=== PATIENT | female | born 1985 | race Caucasian/White ===

== ENCOUNTER → 2023-11-10 13:51 | Outpatient (REF) | payer BC, SELFPAY | LOC: PNTC 13:51 | PROVIDERS: ATTENDING PHYSICIAN Obstetrics & Gynecology | DX: Z36.0 Encounter for antenatal screening for chromosomal anomalies (principal); Z36.82 Encounter for antenatal screening for nuchal translucency; O09.899 Supervision of other high risk pregnancies, unspecified trimester; O34.219 Maternal care for unspecified type scar from previous cesarean delivery; O09.529 Supervision of elderly multigravida, unspecified trimester | CPT/HCPCS: 76801; 76813 ==

== ENCOUNTER → 2023-12-02 16:24 | Outpatient (REF) | payer BC, SELFPAY | LOC: PNTC 16:24 | PROVIDERS: ATTENDING PHYSICIAN Obstetrics & Gynecology | DX: O09.529 Supervision of elderly multigravida, unspecified trimester (principal); O34.219 Maternal care for unspecified type scar from previous cesarean delivery; O99.210 Obesity complicating pregnancy, unspecified trimester | CPT/HCPCS: 76805; 76817 ==

== ENCOUNTER → 2023-12-16 16:44 | Outpatient (REF) | payer BC, SELFPAY | LOC: PNTC 16:44 | PROVIDERS: ATTENDING PHYSICIAN Obstetrics & Gynecology | DX: O60.10X0 Preterm labor with preterm delivery, unspecified trimester, not applicable or unspecified (principal) | CPT/HCPCS: 76815; 76817 ==

== ENCOUNTER → 2023-12-31 14:56 | Outpatient (REF) | payer BC, SELFPAY | LOC: PNTC 14:56 | PROVIDERS: ATTENDING PHYSICIAN Obstetrics & Gynecology | DX: O09.529 Supervision of elderly multigravida, unspecified trimester (principal); O99.210 Obesity complicating pregnancy, unspecified trimester; O34.219 Maternal care for unspecified type scar from previous cesarean delivery | CPT/HCPCS: 76811; 76817 ==

== ENCOUNTER → 2024-01-12 16:43 | Outpatient (REF) | payer BC, SELFPAY | LOC: PNTC 16:43 | PROVIDERS: ATTENDING PHYSICIAN Obstetrics & Gynecology | DX: O60.10X0 Preterm labor with preterm delivery, unspecified trimester, not applicable or unspecified (principal) | CPT/HCPCS: 76815; 76817 ==

== ENCOUNTER → 2024-01-29 15:45 | Outpatient (REF) | payer BC, SELFPAY | LOC: PNTC 15:45 | PROVIDERS: ATTENDING PHYSICIAN Obstetrics & Gynecology | DX: O09.219 Supervision of pregnancy with history of pre-term labor, unspecified trimester (principal) | CPT/HCPCS: 76816; 76817 ==

== ENCOUNTER 2024-03-23 17:41 | Observation (INO) | payer BC, SELFPAY ==
[2024-03-23] MEDS: TRANDATE 200 MG PO (18:22)
[2024-03-23 18:38] VITALS: BP 154/92; BMI 42.1
[2024-03-23 18:56] LABS: Hematocrit 34.2 % (37.0-47.0); Hemoglobin 11.4 g/dL (12.0-16.0); Mean Corp Hgb Conc. 33.3 g/dL (33.0-37.0); Mean Corpuscular Hgb 26.5 pg (27.0-31.0); Mean Corpuscular Volume 79.5 fL (81.0-99.0); Mean Platelet Volume 11.7 fL (7.4-10.4); Platelet Count 135 10^3/uL (130-400); Red Cell Dist. Width 13.5 % (11.5-14.5); White Blood Cell Count 9.8 10^3/uL (4.8-10.8)
[2024-03-23 19:00] LABS: Urine Albumin Negative (Neg - Trace); Urine Bilirubin Negative (Negative); Urine Character Clear (Clear); Urine Color Yellow; Urine Glucose Negative (Negative); Urine Ketone Trace (Negative); Urine Leukocyte Negative (Negative); Urine Nitrite Negative (Negative); Urine Occult Blood Negative (Negative); Urine Urobilinogen Negative (Neg - 1+)
[2024-03-23 19:04] LABS: ALT (SGPT) 12 U/L (0-35); AST (SGOT) 20 U/L (14-36); Albumin 3.6 g/dl (3.5-5.0); Alkaline Phosphatase 80 U/L (38-126); Blood Urea Nitrogen 10 mg/dl (7-17); Calcium 8.8 mg/dl (8.4-10.2); Carbon Dioxide 22 mmol/L (22-30); Chloride 104 mmol/L (98-107); Estimated Creatinine Clearance > 125 ml/min; Glucose 78 mg/dl (70-99); Potassium 3.9 mmol/L (3.5-5.1); Sodium 135 mmol/L (135-145); Total Bilirubin 0.3 mg/dl (0.2-1.3); Total Protein 6.4 g/dl (6.3-8.2); eGFR > 60.00
[2024-03-23 19:14] LABS: Protein/creatinine Ratio 0.5; Urine Protein 14 mg/dl
== END 2024-03-23 23:31 | disposition home or self-care (01) ==
LOC: LDRP 17:41
PROVIDERS: ADMITTING PHYSICIAN Obstetrics & Gynecology
DX: O10.013 Pre-existing essential hypertension complicating pregnancy, third trimester (principal); Z3A.32 32 weeks gestation of pregnancy; O99.113 Other diseases of the blood and blood-forming organs and certain disorders involving the immune mechanism complicating pregnancy, third trimester; D69.6 Thrombocytopenia, unspecified; O99.213 Obesity complicating pregnancy, third trimester; E66.01 Morbid (severe) obesity due to excess calories; G43.909 Migraine, unspecified, not intractable, without status migrainosus; O98.313 Other infections with a predominantly sexual mode of transmission complicating pregnancy, third trimester; A60.00 Herpesviral infection of urogenital system, unspecified; O09.523 Supervision of elderly multigravida, third trimester; Z91.148 Patient's other noncompliance with medication regimen for other reason
CPT/HCPCS: 59025; 76816; 80053; 81003; 82570; 84156; 85027; G0378

== ENCOUNTER 2024-03-29 10:08 | Observation (INO) | payer BC, SELFPAY ==
[2024-03-29 10:40] VITALS: BP 144/87; BMI 43.2
[2024-03-29 11:47] LABS: Urine Albumin Trace (Neg - Trace); Urine Bilirubin Negative (Negative); Urine Character Clear (Clear); Urine Color Yellow; Urine Glucose Negative (Negative); Urine Ketone Negative (Negative); Urine Leukocyte Trace (Negative); Urine Nitrite Negative (Negative); Urine Occult Blood Negative (Negative); Urine Specific Gravity 1.025 (<1.030); Urine Urobilinogen Negative (Neg - 1+)
[2024-03-29 11:48] LABS: % Basophils 0.3 % (0-2); % Eosinophils 2.9 % (0-6); % Immature Granulocytes 0.7 % (0-0.5); % Lymphocytes 18.1 % (20.5-51.1); % Monocytes 6.1 % (1.7-9.3); % Neutrophils 71.9 % (42.2-75.2); Absolute Eosinophils 0.2 10^3/uL (0-0.7); Absolute Immature Granulocytes 0.1 10^3/uL (0-0.05); Absolute Lymphocytes 1.4 10^3/uL (1.2-3.4); Absolute Monocytes 0.5 10^3/uL (0.1-0.6); Absolute Neutrophils 5.5 10^3/uL (1.4-6.5); Hematocrit 31.4 % (37.0-47.0); Hemoglobin 10.8 g/dL (12.0-16.0); Mean Corp Hgb Conc. 34.4 g/dL (33.0-37.0); Mean Corpuscular Hgb 27.6 pg (27.0-31.0); Mean Corpuscular Volume 80.1 fL (81.0-99.0); Mean Platelet Volume 12.4 fL (7.4-10.4); Nucleated Red Blood Cells % 0 %; Platelet Count 128 10^3/uL (130-400); Red Blood Cell Count 3.92 10^6/uL (4.20-5.40); Red Cell Dist. Width 13.8 % (11.5-14.5); White Blood Cell Count 7.6 10^3/uL (4.8-10.8)
[2024-03-29 12:09] LABS: ALT (SGPT) 16 U/L (0-35); AST (SGOT) 21 U/L (14-36); Albumin 3.3 g/dl (3.5-5.0); Alkaline Phosphatase 85 U/L (38-126); Blood Urea Nitrogen 9 mg/dl (7-17); Calcium 9.3 mg/dl (8.4-10.2); Carbon Dioxide 23 mmol/L (22-30); Chloride 105 mmol/L (98-107); Estimated Creatinine Clearance > 125 ml/min; Glucose 77 mg/dl (70-99); Potassium 4.4 mmol/L (3.5-5.1); Sodium 136 mmol/L (135-145); Total Bilirubin 0.3 mg/dl (0.2-1.3); Total Protein 5.9 g/dl (6.3-8.2); Uric Acid 7.1 mg/dl (2.5-6.2); eGFR > 60.00
[2024-03-29 12:35] LABS: Protein/creatinine Ratio 0.2; Urine Protein 41 mg/dl
[2024-03-29 13:17] LABS: Urine Mucus Many; Urine Squamous Cell >30 /LPF (Few)
[2024-03-29 13:22] LABS: Urine Amorphous Seen; Urine Calcium Oxalate Crystals Seen; Urine Red Blood Cell 0-2 /HPF (0-2); Urine White Cell 0-2 /HPF (0-5)
[2024-03-29 13:23] LABS: Urine Uric Acid Crystals Present
== END 2024-03-29 15:22 | disposition home or self-care (01) ==
LOC: LDRP 10:08
PROVIDERS: ADMITTING PHYSICIAN Obstetrics & Gynecology
DX: O10.013 Pre-existing essential hypertension complicating pregnancy, third trimester (principal); O99.113 Other diseases of the blood and blood-forming organs and certain disorders involving the immune mechanism complicating pregnancy, third trimester; D69.59 Other secondary thrombocytopenia; Z3A.32 32 weeks gestation of pregnancy; O99.213 Obesity complicating pregnancy, third trimester; O09.523 Supervision of elderly multigravida, third trimester; E66.01 Morbid (severe) obesity due to excess calories; O98.313 Other infections with a predominantly sexual mode of transmission complicating pregnancy, third trimester; A60.00 Herpesviral infection of urogenital system, unspecified
CPT/HCPCS: 59025; 80053; 81003; 81015; 82570; 84156; 84550; 85025; G0378

== ENCOUNTER → 2024-04-01 16:20 | Outpatient (REF) | payer BC, SELFPAY | LOC: PNTC 16:20 | PROVIDERS: ATTENDING PHYSICIAN Obstetrics & Gynecology | DX: O13.3 Gestational [pregnancy-induced] hypertension without significant proteinuria, third trimester (principal) | CPT/HCPCS: 59025 ==

== ENCOUNTER 2024-04-06 17:12 | Inpatient (IN) | payer BC, SELFPAY ==
[2024-04-06 17:15] VITALS: BP 172/95; BMI 40.5
[2024-04-06] MEDS: APRESOLINE 10 MG IV ×2 (17:31→17:57)
[2024-04-06 17:44] LABS: % Basophils 0.3 % (0-2); % Eosinophils 2.3 % (0-6); % Immature Granulocytes 0.7 % (0-0.5); % Lymphocytes 17.1 % (20.5-51.1); % Monocytes 8.1 % (1.7-9.3); % Neutrophils 71.5 % (42.2-75.2); Absolute Eosinophils 0.2 10^3/uL (0-0.7); Absolute Immature Granulocytes 0.1 10^3/uL (0-0.05); Absolute Lymphocytes 1.3 10^3/uL (1.2-3.4); Absolute Monocytes 0.6 10^3/uL (0.1-0.6); Absolute Neutrophils 5.5 10^3/uL (1.4-6.5); Hematocrit 30.4 % (37.0-47.0); Hemoglobin 10.1 g/dL (12.0-16.0); Mean Corp Hgb Conc. 33.2 g/dL (33.0-37.0); Mean Corpuscular Hgb 26.8 pg (27.0-31.0); Mean Corpuscular Volume 80.6 fL (81.0-99.0); Mean Platelet Volume 12.6 fL (7.4-10.4); Nucleated Red Blood Cells % 0 %; Platelet Count 134 10^3/uL (130-400); Red Blood Cell Count 3.77 10^6/uL (4.20-5.40); Red Cell Dist. Width 13.7 % (11.5-14.5); White Blood Cell Count 7.7 10^3/uL (4.8-10.8)
[2024-04-06 17:50] LABS: APTT 28.9 Sec (23.4-35.0); INR 0.98; PT 13.3 Sec (11.4-14.6)
[2024-04-06 17:54] LABS: ALT (SGPT) 13 U/L (0-35); AST (SGOT) 19 U/L (14-36); Albumin 3.3 g/dl (3.5-5.0); Alkaline Phosphatase 83 U/L (38-126); Blood Urea Nitrogen 10 mg/dl (7-17); Calcium 8.8 mg/dl (8.4-10.2); Carbon Dioxide 22 mmol/L (22-30); Chloride 106 mmol/L (98-107); Estimated Creatinine Clearance > 125 ml/min; Glucose 75 mg/dl (70-99); Potassium 4.3 mmol/L (3.5-5.1); Sodium 135 mmol/L (135-145); Total Bilirubin 0.3 mg/dl (0.2-1.3); eGFR > 60.00
[2024-04-06] MEDS: CELESTONE SOLUSPAN 2 MG IM (18:07)
[2024-04-06] MEDS: TRANDATE 20 MG IV (18:20)
[2024-04-06] MEDS: MAGNESIUM SULFATE 100 IV (18:30)
[2024-04-06 18:35] LABS: Fibrinogen 498 MG/DL (199-459)
[2024-04-06 19:35] LABS: B.E. Cord ABG -4.2 mMOL/L; Cord ABG Comment CORD BLOOD; HCO3 Cord ABG 20.1 mmol/L; O2 Saturation % Cord ABG 78.7 %; PCO2 Cord ABG 34 mmHg; PO2 Cord ABG 36 mmHg; pH Cord ABG 7.38
[2024-04-06 19:37] LABS: B.E. Cord ABG -3.4 mMOL/L; HCO3 Cord ABG 23.6 mmol/L; O2 Saturation % Cord ABG 36.7 %; PCO2 Cord ABG 49 mmHg; PO2 Cord ABG 20 mmHg; pH Cord ABG 7.29
[2024-04-06] MEDS: LR 1000 IV (20:13)
[2024-04-06] MEDS: PITOCIN 30 UNITS/NSS 500 ML IV (20:13)
[2024-04-06] MEDS: MAGNESIUM SULFATE 40 GRAM 1000 IV (20:13)
[2024-04-06] MEDS: ANCEF 10 IV (20:33)
[2024-04-06] MEDS: TYLENOL 650 MG PO (21:19)
[2024-04-06] MEDS: MORPHINE SULFATE 4 MG IV (22:48)
[2024-04-06] MEDS: TRANDATE PO (23:24)
[2024-04-07] MEDS: PITOCIN 30 UNITS/NSS 500 ML IV (00:15)
[2024-04-07] MEDS: MORPHINE SULFATE 4 MG IV (01:57)
[2024-04-07] MEDS: MORPHINE SULFATE 2 MG IV ×2 (04:18→06:25)
[2024-04-07 06:31] LABS: Hematocrit 29.7 % (37.0-47.0); Hemoglobin 9.8 g/dL (12.0-16.0); Mean Corpuscular Hgb 26.4 pg (27.0-31.0); Mean Corpuscular Volume 80.1 fL (81.0-99.0); Mean Platelet Volume 12.2 fL (7.4-10.4); Platelet Count 156 10^3/uL (130-400); Red Blood Cell Count 3.71 10^6/uL (4.20-5.40); Red Cell Dist. Width 13.8 % (11.5-14.5); White Blood Cell Count 15.3 10^3/uL (4.8-10.8)
[2024-04-07 07:02] LABS: Magnesium 4.9 mg/dl (1.6-2.3)
[2024-04-07] MEDS: TRANDATE 300 MG PO ×2 (09:58→20:20)
[2024-04-07] MEDS: FEOSOL 325 MG PO (10:00)
[2024-04-07] MEDS: SENOKOT-S 1 TABLET PO (10:00)
[2024-04-07] MEDS: PERCOCET 5/325 1 TABLET PO ×2 (10:00→19:41)
[2024-04-07 10:49] LABS: ALT (SGPT) 14 U/L (0-35); AST (SGOT) 25 U/L (14-36); Alkaline Phosphatase 88 U/L (38-126); Blood Urea Nitrogen 7 mg/dl (7-17); Calcium 7.4 mg/dl (8.4-10.2); Carbon Dioxide 16 mmol/L (22-30); Chloride 106 mmol/L (98-107); Estimated Creatinine Clearance > 125 ml/min; Glucose 142 mg/dl (70-99); Potassium 4.3 mmol/L (3.5-5.1); Sodium 132 mmol/L (135-145); Total Bilirubin 0.2 mg/dl (0.2-1.3); Total Protein 5.6 g/dl (6.3-8.2); eGFR > 60.00
[2024-04-07] MEDS: LR 1000 IV (13:32)
[2024-04-07] MEDS: MOTRIN 600 MG PO ×2 (14:04→22:52)
[2024-04-07] MEDS: MAGNESIUM SULFATE 40 GRAM 1000 IV (15:19)
--- NOTE | 2024-04-07 15:54 | CM ---
Met with new parents Ghislaine and Gabriel at bedside
Parents have named their Silvia Hodges. Infant currently in the NICU
Mom confirmed listed address. Living in home Mom Ghislaine, father Gabriel and 2 children ages 5 and 2
Mom reports she has supplies for infant including car seat, crib, clothing
Mom plans to breast and bottle feed her
Peds - [facility]
Mom will f/u at [facility]
Mom requesting breast pump - Order form faxed to [employer]
Discussed Early Intervention with parents - given information
Declined at this time
[2024-04-07] MEDS: MYLICON 80 MG PO (19:41)
[2024-04-08] MEDS: TYLENOL 650 MG PO ×2 (06:00→19:52)
[2024-04-08] MEDS: FEOSOL 325 MG PO (08:20)
[2024-04-08] MEDS: TRANDATE 300 MG PO ×2 (08:20→19:47)
[2024-04-08] MEDS: MOTRIN 600 MG PO ×3 (08:21→22:01)
[2024-04-09] MEDS: TYLENOL 650 MG PO ×3 (01:55→21:19)
[2024-04-09] MEDS: MOTRIN 600 MG PO ×3 (05:01→21:18)
[2024-04-09] MEDS: TRANDATE 400 MG PO ×3 (07:46→23:48)
[2024-04-09] MEDS: FEOSOL 325 MG PO (07:47)
[2024-04-09] MEDS: SENOKOT-S 1 TABLET PO (14:20)
[2024-04-09 16:24] LABS: Syphilis/T. pallidum Ab Reflex Negative (Negative)
[2024-04-09] MEDS: MYLICON 80 MG PO (21:19)
[2024-04-10] MEDS: TYLENOL 650 MG PO ×3 (04:53→22:38)
[2024-04-10] MEDS: MOTRIN 600 MG PO ×3 (04:53→22:39)
[2024-04-10] MEDS: SENOKOT-S 1 TABLET PO (08:02)
[2024-04-10] MEDS: FEOSOL 325 MG PO (08:02)
[2024-04-10] MEDS: TRANDATE 400 MG PO ×3 (08:05→23:59)
--- NOTE | 2024-04-10 11:29 | CON.CAR ---
Addendum entered and electronically signed by Adriel Salmon DO 04/10/24 12:58:
I saw and examined the patient.
The Manager [employer]'s note was reviewed and I agree with the note.
Comment:
GENERAL: no acute distress
EYE: sclera anicteric
NECK: Supple, no JVD, no carotid bruit appreciated
ENT: normal nose, moist mucosal membranes
CARDIAC: Regular rate and rhythm, +S1/S2, no murmur, rubs, or gallops
CHEST/PULMONARY: Normal effort, clear breath sounds
ABDOMEN: Soft, without focal tenderness or distention
NEUROLOGICAL: Alert and oriented x3
SKIN: Warm and dry, no rash; 2�3+ pitting edema bilateral lower extremity
PSYCH: Normal and appropriate interaction.
A/P as below
Check echocardiogram
Lower extremity swelling and hypertension
EKG
Check electrolytes, replete with goal potassium greater than 4, magnesium greater than 2
Continue labetalol 400 every 8, add nifedipine ER 30 mg daily and monitor BP
Will follow
Original Note:
Consultation
Consultation Request
Date/Time Consultation Requested: 04/10/24
Date/Time Consultation Performed: 04/10/24
Requesting Provider: Dr. Lira
Performing Provider: Dr. Salmon
Reason for Consultation: preeclampsia
Medical History
-
History of Present Illness:
Patient came to ED on Friday for scheduled nonstress test and was noted to be increasingly hypertensive and was admitted to labor and delivery and had a later that night, cardiology is now consulted for preeclampsia with severe
features. Patient was found to be in the NICU with her and . Patient reports that this is her third . Patient delivered her daughter in 2018 at another hospital at 39 weeks and was told that she had preeclampsia while in
labor. She says that she did not require any antihypertensive agents and was discharged to home at the same time as her infant. The patient's second was delivered here at [facility] in 2021 and was associated with
premature rupture of membranes. That delivery was a due to breech presentation. The patient denies any issues with her blood pressure or any mention of preeclampsia during that delivery and again patient and were
discharged to home at the same time. With this the patient was following with her same GREETING CARD WRITER as her second and was noted at 20 weeks to have hypertension and was started on labetalol. Patient was taking labetalol 300 mg twice
daily prior to admission and reports taking her dose as normal on the morning of admission, 04/06/2024. Patient had on the night of 04/06/2024 following delivery labetalol dose has been increased and is up to 400 mg every 8 hours at this
point. Additionally patient was scheduled to receive a dose of nifedipine ER 30 mg daily, but dose was held due to improved BP. Patient denies any headache or change in vision. She reports increased LE edema in the last 48 hours.
PMH:
h/o preeclampsia associated with in 2018
h/o gestational HTN
h/o premature rupture of membranes
Past Medical History
Past Medical History: Other (in HPI)
Past Surgical History:
Social History
Tobacco: Non-Smoker
Alcohol: None
Drug: None
Personal:
Living: With Family
Employment: Employed
Family History
Family History: Other (No FH preeclampsia or HTN)
Allergies / Home Medications
Allergy/AdvReac Type Severity Reaction Status Date / Time
No Known Allergies Allergy Verified 04/06/24 18:06
�Medication �Instructions �Recorded �Confirmed �Type
aspirin 81 mg tablet 81 mg PO DAILY Blood Clot 03/23/24 04/06/24 History
Prevention/Tx
labetalol 300 mg tablet 300 mg PO BID #60 tabs 03/29/24 04/06/24 Rx
Review of Systems
-
History Source: Patient and Family ( sitting next to patient)
All other systems: Negative unless noted
Physical Exam
Vital Signs
Temp Pulse Resp BP Pulse Ox
97.8 F 69 22 157/97 100
04/06/24 17:15 04/10/24 08:05 04/06/24 17:15 04/10/24 08:05 04/06/24 17:15
GEN: NAD. AAOx3
HEENT: EOMI, MMM
LUNGS: RA. CTA B/L, no wheezes or rales
CV: Reg, S1/S2, no murmur
ABD: soft, BS+, NT, ND
EXT: +2-3 pitting B/L LE edema. No clubbing, cyanosis or lesions B/L.
NEURO: Gross non-focal
SKIN: Warm, dry and pink. No rash
Lab Results
04/07/24 06:00
04/07/24 08:47
Impression / Plan
-
PCP: None
Cardiology: None
Impression:
Preeclampsia
h/o preeclampsia associated with in 2019
h/o gestational HTN
h/o premature rupture of membranes
Echo 04/10/2024: Study pending
Plan:
-Patient came to ED on Friday for scheduled nonstress test and was noted to be increasingly hypertensive and was admitted to labor and delivery and had a later that night, cardiology is now consulted for preeclampsia with severe
features. Patient was found to be in the NICU with her and . Patient reports that this is her third . Patient delivered her daughter in 2018 at another hospital at 39 weeks and was told that she had preeclampsia while in
labor. She says that she did not require any antihypertensive agents and was discharged to home at the same time as her infant. The patient's second was delivered here at [facility] in 2021 and was associated with
premature rupture of membranes. That delivery was a due to breech presentation. The patient denies any issues with her blood pressure or any mention of preeclampsia during that delivery and again patient and infant were
discharged to home at the same time. With this the patient was following with her same GREETING CARD WRITER as her second and was noted at 20 weeks to have hypertension and was started on labetalol. Patient was taking labetalol 300 mg twice
daily prior to admission and reports taking her dose as normal on the morning of admission, 04/06/2024. Patient had on the night of 04/06/2024 following delivery labetalol dose has been increased and is up to 400 mg every 8 hours at this
point. Additionally patient was scheduled to receive a dose of nifedipine ER 30 mg daily, but dose was held due to improved BP. Patient denies any headache or change in vision. She reports increased LE edema in the last 48 hours.
-Cont labetalol 400 mg q8 hours
-Agree with adding nifedipine ER 30 mg daily and would only hold for SBP less than 110.
-Reviewed with patient the plan for an additional BP med and that we would see patient in the office and work on reducing meds as an outpatient pending improvement in BP.
-For now with increased LE edema in the last 48 hours post- will check echo to be sure EF normal.
-Recheck labs.
-Check ECG.
[2024-04-10] MEDS: PROCARDIA XL (EXTENDED RELEASE) 30 MG PO (13:14)
[2024-04-11 06:19] LABS: ALT (SGPT) 30 U/L (0-35); AST (SGOT) 28 U/L (14-36); Albumin 3.5 g/dl (3.5-5.0); Alkaline Phosphatase 80 U/L (38-126); Blood Urea Nitrogen 12 mg/dl (7-17); Calcium 8.8 mg/dl (8.4-10.2); Carbon Dioxide 24 mmol/L (22-30); Chloride 106 mmol/L (98-107); Estimated Creatinine Clearance > 125 ml/min; Glucose 82 mg/dl (70-99); Magnesium 1.7 mg/dl (1.6-2.3); Potassium 4.2 mmol/L (3.5-5.1); Sodium 137 mmol/L (135-145); Total Bilirubin 0.3 mg/dl (0.2-1.3); Total Protein 6.2 g/dl (6.3-8.2); eGFR > 60.00
[2024-04-11] MEDS: TYLENOL 650 MG PO ×2 (06:21→10:11)
[2024-04-11] MEDS: MOTRIN 600 MG PO ×2 (06:22→12:44)
[2024-04-11] MEDS: TRANDATE 400 MG PO (08:49)
[2024-04-11] MEDS: PROCARDIA XL (EXTENDED RELEASE) 30 MG PO (08:55)
[2024-04-11] MEDS: FEOSOL 325 MG PO (08:56)
[2024-04-11] MEDS: MAGNESIUM OXIDE 500 MG PO (10:17)
--- NOTE | 2024-04-11 12:33 | W.PN.CARDCBS ---
Today's Communication / Plan
-
Continue labetalol, Procardia
Improved BP; recommend outpatient monitoring with home cuff
Reduce salt intake
Established with PCP; follow-up in office in 1 to 2 weeks
Stable for DC from a CV standpoint
Impression / Plan
-
PCP: None
Cardiology: None
Impression:
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
- Improved on Labetolol and Procardia; 134/90 on repeat check at 1200pm
Preeclampsia
h/o preeclampsia associated with in 2019
h/o gestational HTN
h/o premature rupture of membranes
Echo 04/10/2024: EF 61%, mild LV/RV dilation, mild LVH, no significant VHD; small PFO by color doppler
Plan:
-Patient came to ED on Friday for scheduled nonstress test and was noted to be increasingly hypertensive and was admitted to labor and delivery and had a later that night, cardiology is now consulted for preeclampsia with severe
features. Patient was found to be in the NICU with her and . Patient reports that this is her third . Patient delivered her daughter in 2018 at another hospital at 39 weeks and was told that she had preeclampsia while in
labor. She says that she did not require any antihypertensive agents and was discharged to home at the same time as her infant. The patient's second was delivered here at [facility] in 2021 and was associated with
premature rupture of membranes. That delivery was a due to breech presentation. The patient denies any issues with her blood pressure or any mention of preeclampsia during that delivery and again patient and were
discharged to home at the same time. With this the patient was following with her same TEST MANAGER as her second and was noted at 20 weeks to have hypertension and was started on labetalol. Patient was taking labetalol 300 mg twice
daily prior to admission and reports taking her dose as normal on the morning of admission, 04/06/2024. Patient had on the night of 04/06/2024 following delivery labetalol dose has been increased and is up to 400 mg every 8 hours at this
point. Additionally patient was scheduled to receive a dose of nifedipine ER 30 mg daily, but dose was held due to improved BP. Patient denies any headache or change in vision. She reports increased LE edema in the last 48 hours.
-Cont labetalol 400 mg q8 hours
-Agree with adding nifedipine ER 30 mg daily and would only hold for SBP less than 110.
-Reviewed with patient the plan for an additional BP med and that we would see patient in the office and work on reducing meds as an outpatient pending improvement in BP.
-For now with increased LE edema in the last 48 hours post- will check echo to be sure EF normal.
-Lab work stable
Progress Note - Rag Inspector
Subjective
Date of Service: April 11, 2024
Patient seen and examined. No acute events overnight. Patient reporting mild headache but improved. Additionally, noted mild lightheadedness immediately after taking Procardia however this resolved. Blood pressure initially noted to be elevated
in the morning however has since improved in the afternoon. Repeat blood pressure 134/90. No chest pain, shortness of breath, palpitations, near-syncope, syncope, or weakness. Notes improving lower extremity swelling.
Objective
Labs:
04/07/24 06:00
04/11/24 05:37
Labs
Hgb 9.8 g/dL (12.0-16.0) L 04/07/24 06:00
Hct 29.7 % (37.0-47.0) L 04/07/24 06:00
Plt Count 156 10^3/uL (130-400) 04/07/24 06:00
PT 13.3 Sec (11.4-14.6) 04/06/24 17:29
INR 0.98 04/06/24 17:29
APTT 28.9 Sec (23.4-35.0) 04/06/24 17:29
Sodium 137 mmol/L (135-145) 04/11/24 05:37
Potassium 4.2 mmol/L (3.5-5.1) 04/11/24 05:37
BUN 12 mg/dl (7-17) 04/11/24 05:37
Creatinine 0.6 mg/dL (0.6-1.0) 04/11/24 05:37
Glucose 82 mg/dl (70-99) 04/11/24 05:37
Vital Signs and I&O:
Vital Signs
Temp Pulse Resp BP Pulse Ox
97.8 F 82 22 156/91 100
04/06/24 17:15 04/11/24 08:55 04/06/24 17:15 04/11/24 08:55 04/06/24 17:15
Vital Signs
Temp Pulse Resp BP Pulse Ox
97.8 F 82 22 156/91 100
04/06/24 17:15 04/11/24 08:55 04/06/24 17:15 04/11/24 08:55 04/06/24 17:15
Physical Exam
Physical Exam
GENERAL: no acute distress
EYE: sclera anicteric
NECK: Supple, no JVD, no carotid bruit appreciated
ENT: normal nose, moist mucosal membranes
CARDIAC: Regular rate and rhythm, +S1/S2, no murmur, rubs, or gallops
CHEST/PULMONARY: Normal effort, clear breath sounds
ABDOMEN: Soft, without focal tenderness or distention
NEUROLOGICAL: Alert and oriented x3
SKIN: Warm and dry, no rash;1+ pitting edema bilateral lower extremity
PSYCH: Normal and appropriate interaction.
[2024-04-11] MEDS: SENOKOT-S 1 TABLET PO (12:44)
== END 2024-04-11 13:20 | disposition home or self-care (01) | DRG 788 ==
LOC: LDRP 17:12
PROVIDERS: Physician Assistant Medical; ADMITTING PHYSICIAN Obstetrics & Gynecology
PROC: 10D00Z1 Extraction of Products of Conception, Low, Open Approach (ICD-10-PCS; 2024-04-06)
DX: O14.14 Severe pre-eclampsia complicating childbirth (principal); O69.2XX0 Labor and delivery complicated by other cord entanglement, with compression, not applicable or unspecified; O69.81X0 Labor and delivery complicated by cord around neck, without compression, not applicable or unspecified; O99.214 Obesity complicating childbirth; Z3A.34 34 weeks gestation of pregnancy; Z37.0 Single live birth; O34.211 Maternal care for low transverse scar from previous cesarean delivery; N85.8 Other specified noninflammatory disorders of uterus
CPT/HCPCS: 88307; 59025; 76815; 80053; 82803; 83735; 85025; 85027; 85384; 85610; 85730; 86780; 86850; 86900; 86901; 87070; 87077; 87147; 93306